=== PATIENT | male | born 1990 | race Caucasian/White ===

== ENCOUNTER 2019-06-01 11:07 | Emergency (ER) | payer MEDICAID, OTHER ==
[~2019-06-01] VITALS: Ht 185.4 cm; Wt 60.0 kg
[~2019-06-01 11:07] MED LIST: CYCL-120 PO; NAPR-56 PO; NO HOME MEDS; SELE118S3 TP
[2019-06-01 11:17] VITALS: BP 128/77
[2019-06-01] MEDS ORDERED: dexamethasone sod phosphate 10mg/ml inj PO STA (11:43)
== END 2019-06-01 12:27 | disposition home or self-care (01) ==
LOC: ER 11:07
DX: J02.8 Acute pharyngitis due to other specified organisms (principal); B97.89 Other viral agents as the cause of diseases classified elsewhere; G89.29 Other chronic pain; F17.200 Nicotine dependence, unspecified, uncomplicated; F12.90 Cannabis use, unspecified, uncomplicated; Z79.899 Other long term (current) drug therapy
CPT/HCPCS: 87081; 87880; 99283; J1100

== ENCOUNTER 2022-09-15 10:17 | Emergency (ER) | payer OTHER ==
[~2022-09-15] VITALS: Ht 180.3 cm; Wt 73.2 kg
[2022-09-15] MEDS ORDERED: DOCU-148 PO (10:42)
[2022-09-15] MEDS ORDERED: TRAM50TA2 PO (10:42)
[2022-09-15] MEDS ORDERED: HYDR-3965 PO (11:48)
[2022-09-15 12:24] VITALS: BP 142/101
== END 2022-09-15 12:56 | disposition home or self-care (01) ==
LOC: ER 10:17
DX: S82.832A Other fracture of upper and lower end of left fibula, initial encounter for closed fracture (principal); S93.492A Sprain of other ligament of left ankle, initial encounter; G89.29 Other chronic pain; F12.90 Cannabis use, unspecified, uncomplicated; Z79.899 Other long term (current) drug therapy; W18.39XA Other fall on same level, initial encounter; Y93.89 Activity, other specified; Y92.89 Other specified places as the place of occurrence of the external cause; Y99.8 Other external cause status
CPT/HCPCS: 29505; 73560; 73610; 73700; 99284; A6446; A6449

== ENCOUNTER 2022-10-01 11:51 | Emergency (ER) | payer OTHER ==
[~2022-10-01] VITALS: Ht 180.3 cm; Wt 63.0 kg
[~2022-10-01 11:51] MED LIST changes: +DOCU-148 PO; +HYDR-3965 PO; +TRAM50TA2 PO
[2022-10-01 11:56] VITALS: BP 110/83
[2022-10-01] MEDS ORDERED: acetaminophen 325mg tablet PO ONE (12:35)
[2022-10-01] MEDS ORDERED: OXYC-145 PO (12:38)
== END 2022-10-01 13:35 | disposition home or self-care (01) ==
LOC: ER 11:51
DX: S82.832G Other fracture of upper and lower end of left fibula, subsequent encounter for closed fracture with delayed healing (principal); G89.29 Other chronic pain; M54.9 Dorsalgia, unspecified; W19.XXXS Unspecified fall, sequela
CPT/HCPCS: 73590; 99283; 99284; 99285; A6449